=== PATIENT | female | born 1960 | race Caucasian/White ===

== ENCOUNTER 2019-07-02 09:59 | Emergency (ER) | payer OTHER ==
[~2019-07-02] VITALS: Ht 157.5 cm; Wt 82.6 kg
[~2019-07-02 09:59] MED LIST: KETO10TA2 PO; ORPH100T PO; VASOTEC5 MG
== END 2019-07-02 11:36 | disposition home or self-care (01) ==
LOC: ER 09:59
DX: T78.1XXA Other adverse food reactions, not elsewhere classified, initial encounter (principal); L29.8 Other pruritus

== ENCOUNTER 2020-10-24 21:50 | Emergency (ER) | payer OTHER ==
[~2020-10-24] VITALS: Ht 157.5 cm; Wt 85.3 kg
[2020-10-25] MEDS ORDERED: AMOX-CLAV 875-1 EACH PO (00:48)
[2020-10-25] MEDS ORDERED: INTESTINEX680 M2 PO (00:48)
== END 2020-10-25 01:19 | disposition home or self-care (01) ==
LOC: ER 21:50
DX: L03.012 Cellulitis of left finger (principal); L03.011 Cellulitis of right finger

== ENCOUNTER 2020-11-01 09:39 | Emergency (ER) | payer OTHER ==
[~2020-11-01] VITALS: Ht 157.5 cm; Wt 85.3 kg
[~2020-11-01 09:39] MED LIST changes: +AMOX-CLAV 875-1 EACH PO; +INTESTINEX680 M2 PO
[2020-11-01] MEDS ORDERED: ENALAPRIL MALE2.5 MG PO (09:57)
[2020-11-01] MEDS ORDERED: DUI500 PO (11:38)
[2020-11-01] MEDS ORDERED: KETO10TA2 PO (11:38)
[2020-11-01] MEDS ORDERED: MUPIROCIN1 G1 TOP (11:38)
== END 2020-11-01 11:58 | disposition home or self-care (01) ==
LOC: ER 09:39
DX: L03.113 Cellulitis of right upper limb (principal)

== ENCOUNTER 2024-11-20 17:53 | Emergency (ER) | payer OTHER ==
[~2024-11-20] VITALS: Ht 157.5 cm; Wt 83.9 kg
[~2024-11-20 17:53] MED LIST changes: +DUI500 PO; +ENALAPRIL MALE2.5 MG PO; +MUPIROCIN1 G1 TOP
[2024-11-20] MEDS ORDERED: ROSUVASTATIN CA10 MG PO (18:24)
[2024-11-20] MEDS ORDERED: BENZONATATE 100 MG CAPSULE PO ONE (19:00)
[2024-11-20 19:06] LABS: HEMATOCRIT 43.4 % (36.0-45.00); HEMOGLOBIN 14.8 g/dL (12.0-15.00); MEAN CORPUSCULAR HEMOGLOBIN 31.4 pg (27.00-32.0); MEAN CORPUSCULAR HGB CONC 34.2 g/dl (32.0-36.0); PLATELET COUNT 296 K/uL (150-450); RED BLOOD COUNT 4.71 M/uL (4.00-6.00); RED CELL DISTRIBUTION WIDTH 12.7 % (11.5-14.5)
[2024-11-20] MEDS ORDERED: PAXLOVID 150-11 EAC1 PO (21:54)
[2024-11-20] MEDS ORDERED: GILTUSS COUGH-118 M1 PO (21:54)
== END 2024-11-20 22:23 | disposition home or self-care (01) ==
LOC: ER 17:55
PROVIDERS: Preventive Medicine Public Health & General Preventive Medicine
DX: U07.1 COVID-19 (principal); Z91.013 Allergy to seafood; I10 Essential (primary) hypertension; E78.49 Other hyperlipidemia

== ENCOUNTER 2025-02-21 05:03 | Emergency (ER) | payer OTHER ==
[~2025-02-21] VITALS: Ht 157.5 cm; Wt 83.9 kg
[~2025-02-21 05:03] MED LIST changes: +GILTUSS COUGH-118 M1 PO; +PAXLOVID 150-11 EAC1 PO; +ROSUVASTATIN CA10 MG PO
[2025-02-21] MEDS ORDERED: VASOTEC10 MG PO (05:17)
[2025-02-21] MEDS ORDERED: FAMOTIDINE/PF 20 MG in 0.9 % SODIUM CHLORIDE 8 ML IV PUSH STA (05:30)
[2025-02-21 05:58] LABS: HEMATOCRIT 41.6 % (36.0-45.00); HEMOGLOBIN 13.8 g/dL (12.0-15.00); MEAN CELL VOLUME 93.2 fL (80.00-100.00); MEAN CORPUSCULAR HEMOGLOBIN 30.9 pg (27.00-32.0); MEAN CORPUSCULAR HGB CONC 33.2 g/dl (32.0-36.0); PLATELET COUNT 215 K/uL (150-450); RED BLOOD COUNT 4.46 M/uL (4.00-6.00); RED CELL DISTRIBUTION WIDTH 12.8 % (11.5-14.5)
[2025-02-21 06:23] LABS: ALBUMIN 3.1 gm/dL (3.4-5.0); BILIRUBIN TOTAL 0.3 mg/dL (0.3-1.2); CALCIUM 8.1 mg/dL (8.5-10.1); CREATININE SERUM 0.61 mg/dL (0.55-1.02); GFR 99.38; GLOBULINA 4.3 G/DL (2.4-3.5); POTASSIUM 3.56 mEq/L (3.5-5.1); TOTAL PROTEIN 7.4 gm/dL (6.4-8.2)
[2025-02-21] MEDS ORDERED: PEPCID AC20 MG PO (06:34)
== END 2025-02-21 06:45 | disposition home or self-care (01) ==
LOC: ER 05:04
PROVIDERS: General Practice
DX: K29.70 Gastritis, unspecified, without bleeding (principal); R10.9 Unspecified abdominal pain; I10 Essential (primary) hypertension; Z91.013 Allergy to seafood